=== PATIENT | male | born 1980 | race Caucasian/White ===

== ENCOUNTER 2016-11-09 13:52 | Emergency (ER) | payer BC, MEDICAID ==
[~2016-11-09] VITALS: Ht 188 cm; Wt 108.9 kg
[2016-11-09 13:54] VITALS: BP 133/70
--- NOTE | 2016-11-09 14:00 | NUR ---
PATIENT PRESENTS TO ED WITH C/O LBP X5 DAYS . PT STATES HE'S HAD THE PAIN INTERMITTENTLY OVER THE PAST 14 YEARS, BUT 5 DAYS AGO THE PAIN WAS SO SEVERE HE WAS UNABLE TO GET OUT OF BED. PT DENIES ANY FALL OR TRAUMA . DENIES N/V/D; SKIN IS PINK/WARM/DRY; AAOX4 WITH EVEN AND STEADY GAIT; LUNGS CLEAR BL; HR EVEN AND REGULAR; PT DENIES ANY FEVER, CP, SOB, OR COUGH AT THIS TIME; PATIENT STATES PAIN OF 6/10 AT THIS TIME; VSS; PATIENT POSITIONED FOR COMFORT; ER MD MADE AWARE OF PT STATUS.
--- NOTE | 2016-11-09 14:01 | NUR ---
Patient to OF.
--- NOTE | 2016-11-09 14:10 | NUR ---
Patient to XRAY via wheelchair per tech.
--- NOTE | 2016-11-09 14:18 | NUR ---
Patient back from XRAY via wheelchair per tech.
--- NOTE | 2016-11-09 14:31 | NUR ---
Dr. Oconnell evaluating patient.
[2016-11-09] MEDS ORDERED: HYDROcodone/APAP 5/325 MG 1 TAB TAB PO ONE (14:55)
--- NOTE | 2016-11-09 15:15 | NUR ---
Patient discharged with v/s stable. Written and verbal after care instructions given and explained. Patient alert, oriented and verbalized understanding of instructions. Ambulatory with steady gait. All questions addressed prior to discharge. ID band removed. Patient advised to follow up with PMD. Rx of FLEXERIL, NORCO,AND MOTRIN given. Patient educated on indication of medication including possible reaction and side effects. Opportunity to ask questions provided and answered.
[2016-11-09 15:20] VITALS: BP 133/70
== END 2016-11-09 15:15 | disposition home or self-care (01) ==
LOC: MED 13:52
DX: M54.41 Lumbago with sciatica, right side (principal); R03.0 Elevated blood-pressure reading, without diagnosis of hypertension; J45.909 Unspecified asthma, uncomplicated; G89.29 Other chronic pain; M54.5 Low back pain
CPT/HCPCS: 72100; 99284